=== PATIENT | male | born 1950 | race African-American/Black ===

== ENCOUNTER → 2016-10-08 | Outpatient (CLI) | payer MEDICARE, BC ==
[2016-10-10 12:28] LABS: PROSTATE SPECIFIC ANTIGEN 4.5 ng/mL (0.0-4.0); PSA % FREE 9.6 % (.); PSA FREE 0.43 ng/mL
== END ==
LOC: OD 15:06
PROVIDERS: ATTEND Urology
DX: K58.9 Irritable bowel syndrome, unspecified (principal); K59.00 Constipation, unspecified; R97.20 Elevated prostate specific antigen [PSA]; R10.9 Unspecified abdominal pain
CPT/HCPCS: 36415; 74020; 84154

== ENCOUNTER 2017-05-15 16:02 | Emergency (ER) | payer MEDICARE, BC ==
--- NOTE | 2017-05-15 16:13 | ER Document Report ---
ED Medical Screen (RME) - General Chief Complaint: Urinary Problem Stated Complaint: URINARY PROBLEMS Time Seen by Provider: 05/15/17 16:10 Mode of Arrival: Ambulatory Information source: Patient TRAVEL OUTSIDE OF THE [place] IN LAST 30 DAYS: No - HPI Patient complains to provider of: Urinary retention Notes: 05/15/17 16:12 Patient is a 66-year-old male presenting to the emergency room for acute urinary retention, he states on April 22 he had a prostatectomy performed in [place], he was discharged with a Tillman catheter, which was subsequently removed, he developed intermittent urinary retention had another one placed, which was removed 2 or 3 days ago, he reports that he was doing well until about 4 hours prior to coming to the emergency room and has been unable to urinate since, he feels suprapubic pressure with the urge to go but is unable to pass any urine, he denies any fevers, no nausea, vomiting or diarrhea - Related Data Allergies/Adverse Reactions: No Known Allergies Allergy (Verified 05/15/17 16:08) Past Medical History - Past Medical History Cardiac Medical History: Denies: Hx Coronary Artery Disease, Hx Heart Attack, Hx Hypertension Pulmonary Medical History: Denies: Hx Asthma, Hx Bronchitis, Hx COPD, Hx Pneumonia Neurological Medical History: Denies: Hx Cerebrovascular Accident, Hx Seizures Renal/ Medical History: Denies: Hx Peritoneal Dialysis Musculoskeltal Medical History: Denies Hx Arthritis - Immunizations Hx Diphtheria, Pertussis, Tetanus Vaccination: Yes Physical Exam - Vital signs Vitals: Temp Pulse Resp BP Pulse Ox 97.7 F 75 16 147/76 H 100 05/15/17 16:03 05/15/17 16:03 05/15/17 16:03 05/15/17 16:03 05/15/17 16:03 Course - Vital Signs Vital signs: Temp Pulse Resp BP Pulse Ox 97.7 F 75 16 147/76 H 100 05/15/17 16:03 05/15/17 16:03 05/15/17 16:03 05/15/17 16:03 05/15/17 16:03
[2017-05-15] MEDS ORDERED: LIDOCAINE 2% URO-JET 5 ML KIT MM ONE (16:24)
[2017-05-15 17:22] LABS: APPEARANCE,URINE CLEAR; BILIRUBIN,URINE NEGATIVE (NEGATIVE); GLUCOSE, URINE NEGATIVE (NEGATIVE); KETONES,URINE NEGATIVE (NEGATIVE); LEUKOCYTE ESTERASE,URINE NEGATIVE (NEGATIVE); NITRITE,URINE NEGATIVE (NEGATIVE); PROTEIN,URINE NEGATIVE (NEGATIVE); UROBILINOGEN,URINE NEGATIVE mg/dL (<2.0)
--- NOTE | 2017-05-15 17:38 | ER Document Report ---
ED General - General Chief Complaint: Urinary Problem Stated Complaint: URINARY PROBLEMS Time Seen by Provider: 05/15/17 16:10 Mode of Arrival: Ambulatory TRAVEL OUTSIDE OF THE [place] IN LAST 30 DAYS: No - HPI Patient complains to provider of: Urinary retention Notes: Patient with recent prostate surgery at [place] discharged developed urinary retention had a Tillman catheter placed in have this removed approximately 2-3 days ago and now has developed again urinary retention patient denies changing any medications denies any [id number] medication use. Denies fevers chills nausea vomiting. Upon my evaluation patient has rarely had a Tillman catheter placed and resting comfortably. - Related Data Allergies/Adverse Reactions: No Known Allergies Allergy (Verified 05/15/17 16:08) Past Medical History - General Information source: Patient - Social History Smoking Status: Unknown if Ever Smoked Family History: Reviewed & Not Pertinent - Past Medical History Cardiac Medical History: Denies: Hx Coronary Artery Disease, Hx Heart Attack, Hx Hypertension Pulmonary Medical History: Denies: Hx Asthma, Hx Bronchitis, Hx COPD, Hx Pneumonia Neurological Medical History: Denies: Hx Cerebrovascular Accident, Hx Seizures Renal/ Medical History: Denies: Hx Peritoneal Dialysis Musculoskeltal Medical History: Denies Hx Arthritis - Immunizations Hx Diphtheria, Pertussis, Tetanus Vaccination: Yes Review of Systems - Review of Systems Constitutional: No symptoms reported EENT: No symptoms reported Cardiovascular: No symptoms reported Respiratory: No symptoms reported Gastrointestinal: No symptoms reported Genitourinary: Retention Male Genitourinary: No symptoms reported Musculoskeletal: No symptoms reported Skin: No symptoms reported Hematologic/Lymphatic: No symptoms reported Neurological/Psychological: No symptoms reported -: Yes All other systems reviewed and negative Physical Exam - Vital signs Vitals: Temp Pulse Resp BP Pulse Ox 97.7 F 75 16 147/76 H 100 05/15/17 16:03 05/15/17 16:03 05/15/17 16:03 05/15/17 16:03 05/15/17 16:03 Interpretation: Normal - General General appearance: Appears well, Alert - HEENT Head: Normocephalic, Atraumatic Eyes: Normal Pupils: PERRL - Respiratory Respiratory status: No respiratory distress Chest status: Nontender Breath sounds: Normal Chest palpation: Normal - Cardiovascular Rhythm: Regular Heart sounds: Normal auscultation Murmur: No - Abdominal Inspection: Normal Distension: No distension Bowel sounds: Normal Tenderness: Nontender Organomegaly: No organomegaly - Genitourinary Notes: Tillman catheter in place - Back Back: Normal, Nontender - Extremities General upper extremity: Normal inspection, Nontender, Normal color, Normal ROM , Normal temperature General lower extremity: Normal inspection, Nontender, Normal color, Normal ROM , Normal temperature, Normal weight bearing. No: Derick's sign - Neurological Neuro grossly intact: Yes Cognition: Normal Orientation: AAOx4 [place] Coma Scale Eye Opening: Spontaneous [place] Coma Scale Verbal: Oriented [place] Coma Scale Motor: Obeys Commands [place] Coma Scale Total: 15 Speech: Normal Motor strength normal: LUE, RUE, LLE, RLE Sensory: Normal - Psychological Associated symptoms: Normal affect, Normal mood - Skin Skin Temperature: Warm Skin Moisture: Dry Skin Color: Normal Course - Re-evaluation Re-evalutation: 05/15/17 17:37 No signs of infection will still use and urine for culture will discharge patient home with a leg bag patient is to follow-up with his urologist. - Vital Signs Vital signs: Temp Pulse Resp BP Pulse Ox 97.7 F 75 16 147/76 H 100 05/15/17 16:03 05/15/17 16:03 05/15/17 16:03 05/15/17 16:03 05/15/17 16:03 Discharge - Discharge Clinical Impression: Urinary retention Disposition: HOME, SELF-CARE Instructions: Urinary Retention ([facility]), Tillman Catheter Care ([facility]) Additional Instructions: Please call your urologist for follow-up appointment. The Tillman catheter should remain in until you follow-up with your urologist. Return to the ER for fevers Forms: Return to Work
[2017-05-15 18:25] VITALS: BP 142/97
== END 2017-05-15 18:26 | disposition home or self-care (01) ==
LOC: ER 16:02
DX: R33.9 Retention of urine, unspecified (principal); Z98.890 Other specified postprocedural states
CPT/HCPCS: 51702; 81001; 87086; 99283

== ENCOUNTER → 2017-05-28 | Outpatient (CLI) | payer MEDICARE, BC ==
--- NOTE | 2017-05-28 13:00 | RADIOLOGY REPORT (SQ) ---
EXAM DESCRIPTION: BARIUM ENEMA COMPLETED DATE/TIME: 05/28/2017 9:46 am REASON FOR STUDY: PROSTATE CA (C61 C61 MALIGNANT NEOPLASM OF PROSTATE COMPARISON: None. FLUOROSCOPY TIME: 2.5 minutes 14 images saved to PACS. TECHNIQUE: Following retrograde filling of the colon with Gastrografin, fluoroscopic spot and overhe ad imaging of the colon was obtained and saved to PACS. LIMITATIONS: None. FINDINGS: WAITER WAITRESS KUB: Non obstructive bowel gas pattern. CECUM: Normal cecum. Appendix visualized. ASCENDING COLON: No masses, strictures, or perforations. TRANSVERSE COLON: No masses, strictures, or perforations. DESCENDING COLON: No masses, strictures, or perforations. SIGMOID COLON: No masses, strictures, or perforations. RECTUM: No masses, strictures, or perforations. POST EVAC: Near complete evacuation of gastrografin. OTHER: No evidence of colonic fistula. IMPRESSION: NORMAL SINGLE CONTRAST ENEMA. NO EVIDENCE OF COLONIC FISTULA. COMMENT: None Quality ID [id number]: Final reports for procedures using fluoroscopy that document radiation exposure jacoby jose a, or exposure time and number of fluorographic images (if radiation exposure indices are not avail able) TECHNICAL DOCUMENTATION: JOB ID: [id number] [employer]- All Rights Reserved
== END ==
LOC: RAD 07:52
PROVIDERS: ATTEND Urology
DX: C61 Malignant neoplasm of prostate (principal)
CPT/HCPCS: 74270

== ENCOUNTER 2017-06-13 23:35 | Emergency (ER) | payer MEDICARE, BC ==
--- NOTE | 2017-06-13 23:57 | ER Document Report ---
HPI - HPI Pain Level: 3 Notes: Patient is a 66-year-old male with a history of prostate cancer who presents the ED requesting a coud catheter so he can self catheterize as he ran out of supplies and his supplies are currently in route. Patient follows regularly with a urologist and his primary care provider. Pt had prostate surgery for his cancer in [place] a few months ago. Pt last had dribbling urine about 5 hours ago, tried to cath himself and could not get it in. Denies any headache, fever , URI, sore throat, chest pain, palpitations, syncope, cough, shortness of breath, wheeze, dyspnea, abdominal pain, nausea/vomiting/diarrhea, or rash. - ROS Notes: REVIEW OF SYSTEMS: CONSTITUTIONAL : Denies fever, chills, or sweats. Denies recent illness. EENT: Denies eye, ear, throat, or mouth pain or symptoms. Denies nasal or sinus congestion or discharge. Denies throat, tongue, or mouth swelling or difficulty swallowing. CARDIOVASCULAR: Denies chest pain. Denies palpitations or racing or irregular heart beat. Denies ankle edema. RESPIRATORY: Denies cough, cold, or chest congestion. Denies shortness of breath, difficulty breathing, or wheezing. GASTROINTESTINAL: Denies abdominal pain or distention. Denies nausea, vomiting , or diarrhea. Denies blood in vomitus, stools, or per rectum. Denies black, tarry stools. Denies constipation. GENITOURINARY: see hpi MUSCULOSKELETAL: Denies back or neck pain or stiffness. Denies joint pain or swelling. SKIN: Denies rash, lesions or sores. NEUROLOGICAL: Denies confusion or altered mental status. Denies passing out or loss of consciousness. Denies dizziness or lightheadedness. Denies headache. Denies weakness or paralysis or loss of use of either side. Denies problems with gait or speech. Denies sensory loss, numbness, or tingling. ALL OTHER SYSTEMS REVIEWED AND NEGATIVE. Dictation was performed using [employer] voice recognition software - REPRODUCTIVE Reproductive: DENIES: : - DERM Skin Color: Normal <MARIO BLACK - Last Filed: 06/14/17 01:51> Past Medical History - Social History Smoking Status: Unknown if Ever Smoked Family History: Reviewed & Not Pertinent Patient has suicidal ideation: No Patient has homicidal ideation: No - Past Medical History Cardiac Medical History: Denies: Hx Coronary Artery Disease, Hx Heart Attack, Hx Hypertension Pulmonary Medical History: Denies: Hx Asthma, Hx Bronchitis, Hx COPD, Hx Pneumonia Neurological Medical History: Denies: Hx Cerebrovascular Accident, Hx Seizures Renal/ Medical History: Denies: Hx Peritoneal Dialysis Musculoskeltal Medical History: Denies Hx Arthritis - Immunizations Hx Diphtheria, Pertussis, Tetanus Vaccination: Yes <MARIO BLACK - Last Filed: 06/14/17 01:51> Vertical Provider Document - CONSTITUTIONAL Agree With Documented VS: Yes Notes: PHYSICAL EXAMINATION: GENERAL: Well-appearing, well-nourished and in no acute distress. A&Ox4 LUNGS: Breath sounds clear to auscultation bilaterally and equal. No wheezes rales or rhonchi. HEART: Regular rate and rhythm without murmurs, rubs, gallops. ABDOMEN: Soft, nontender, nondistended abdomen. No guarding, no rebound. No masses appreciated. Normal bowel sounds present. No CVA tenderness bilaterally. : deferred. Musculoskeletal: FROM to passive/active. Strength 5+/5. Extremities: No cyanosis, clubbing, or edema b/l. Peripheral pulses 2+. Capillary refill less than 3 seconds. NEUROLOGICAL: Cranial nerves grossly intact. Normal speech, normal gait. Normal sensory, motor exams PSYCH: Normal mood, normal affect. SKIN: Warm, Dry, normal turgor, no rashes or lesions noted. - INFECTION CONTROL TRAVEL OUTSIDE OF THE [place] IN LAST 30 DAYS: No COUNTRY TRAVELED TO/FROM: [facility] - RESPIRATORY O2 Sat by Pulse Oximetry: 98 <MARIO BLACK - Last Filed: 06/14/17 01:51> Course - Re-evaluation Re-evalutation: 06/13/17 01:15 Patient is an afebrile, well-hydrated, 66-year-old male who presents the ED for a coud catheter for self-catheterization. Vitals are stable. PE is otherwise unremarkable. Patient was unable to self-catheterization in the room as he felt it get stuck. Nurse x2 unable to get a Tillman catheter placed. Bladder scan showed approx 316cc. Pt unable to urinate at all (including dribbles). Reviewed with Dr. Larson- call Uro. Call Dr. Tellez who will come to the ED and perform cystoscope, etc. 06/14/17 01:51 Care transferred to Jayashree PIRES at bedside. - Vital Signs Vital signs: Temp Pulse Resp BP Pulse Ox 97.7 F 67 16 141/88 H 98 06/13/17 23:38 06/13/17 23:38 06/13/17 23:38 06/13/17 23:38 06/13/17 23:38 <MARIO BLACK - Last Filed: 06/14/17 01:51> - Vital Signs Vital signs: Temp Pulse Resp BP Pulse Ox 97.7 F 67 16 141/88 H 98 06/13/17 23:38 06/13/17 23:38 06/13/17 23:38 06/13/17 23:38 06/14/17 01:51 <JAYASHREE COOPER - Last Filed: 06/14/17 02:55> Discharge <MARIO BLACK - Last Filed: 06/14/17 01:51> <JAYASHREE COOPER - Last Filed: 06/14/17 02:55> - Discharge Clinical Impression: Bladder neck contracture Condition: Stable Disposition: HOME, SELF-CARE Instructions: Tillman Catheter Care ([facility]) Additional Instructions: Please follow up with Kevin Calhoun this week for further treatment plan at Referrals: FADI PATEL MD [Primary Care Provider] - Follow up as needed
[2017-06-14] MEDS ORDERED: LIDOCAINE 2% URO-JET 5 ML KIT MM ONE ×2 (00:14→02:16)
[2017-06-14 03:00] VITALS: BP 132/78
--- NOTE | 2017-06-14 04:21 | PDOC CONSULTATION ---
Consultation Consult Date: 06/14/17 Consult reason:: Unable to Place Tillman catheter after radical prostate surgery History of Present Illness Admission Date/PCP: FADI PATEL MD Patient complains of: Ability to urinate for 5 hours History of Present Illness: AURY SHERMAN JR is a 66 year old male The patient is a 66-year-old male who was diagnosed with prostate cancer earlier this year. He underwent a retropubic radical prostatectomy at [facility] by Dr. Harshal Muñiz in March of this year. Since that time he has had some difficulty postoperatively urinating and has required intermittent Tillman catheters since that time. He has been managed with self cathing but was unable to cath earlier today. He presented to the emergency department this evening with suprapubic discomfort and the inability to urinate. Past Medical History Cardiac Medical History: Denies: Coronary Artery Disease, Myocardial Infarction, Hypertension Pulmonary Medical History: Denies: Asthma, Bronchitis, Chronic Obstructive Pulmonary Disease (COPD), Pneumonia Neurological Medical History: Denies: Seizures Musculoskeltal Medical History: Denies: Arthritis Hematology: Reports: Anemia Past Surgical History Past Surgical History: Reports: Other - Radical retropubic prostatectomyAugust 2016 Social History Smoking Status: Unknown if Ever Smoked Frequency of Alcohol Use: None Hx Recreational Drug Use: No Drugs: None Hx Prescription Drug Abuse: No Family History Family History: Reviewed & Not Pertinent Parental Family History Reviewed: No Children Family History Reviewed: No Sibling(s) Family History Reviewed.: No Medication/Allergy Home Medications: Docusate Sodium [Colace 100 mg Capsule] 100 mg PO BID #0 capsule 10/05/15 Allergies/Adverse Reactions: No Known Allergies Allergy (Verified 05/15/17 16:08) Physical Exam Vital Signs: Temp Pulse Resp BP Pulse Ox 98.1 F 70 18 132/78 H 96 06/14/17 03:00 06/14/17 03:00 06/14/17 03:00 06/14/17 03:00 06/14/17 03:00 Intake & Output 06/12/17 06/13/17 06/14/17 06:59 06:59 06:59 Weight 106.9 kg GI/Abdominal exam: PRESENT: tenderness - Tenderness suprapubically over bladder Assessment & Plan - Diagnosis (1) Bladder neck contracture Is this a current diagnosis for this admission?: Yes Plan: Procedure note: Patient was placed into the supine position on the ER bed. He was then prepped and draped in the usual sterile fashion. The urologist tray for obstructed urethra was utilized for Tillman placement. The Glidewire was manipulated into the bladder and the sequential dilators were used to dilate the bladder neck contracture from 8 [place] to 18 [place]. Utilizing the [employer] tip catheter, the 16 [place] catheter was then placed into the bladder. The catheter was irrigated and confirmed to be within the bladder. 10 cc was placed in the balloon and the catheter connected to a leg bag. The patient was sent home with instructions to contact his surgeon and to take his antibiotics previously given 1 daily. Until that time he should not remove the Tillman and should return with any problems with the Tillman sooner.
== END 2017-06-14 03:07 | disposition home or self-care (01) ==
LOC: ER 23:35
DX: N32.0 Bladder-neck obstruction (principal); Z85.46 Personal history of malignant neoplasm of prostate; Z90.79 Acquired absence of other genital organ(s)
CPT/HCPCS: 52000; 99284; A9270; 51702; J3490